=== PATIENT | female | born 1990 | race Asian ===

== ENCOUNTER 2016-07-04 20:30 | Emergency (ER) | payer BC ==
[~2016-07-04] VITALS: Ht 160 cm; Wt 59.0 kg
[2016-07-04 20:41] VITALS: BP 120/76; PULSE 85; RESP 16; TEMP 98.1; O2SAT 96
[2016-07-04 21:35] LABS: BILIRUBIN,URINE 1+ (NEGATIVE); BLOOD, URINE NEGATIVE (NEGATIVE); CLARITY/URINE HAZY (CLEAR); COLOR,URINE YELLOW (YELLOW); GLUCOSE,URINE NEGATIVE (NEGATIVE); KETONES,URINE 1+ (NEGATIVE); LEUKOCYTE ESTERASE ,URINE 1+ (NEGATIVE); NITRITE, URINE NEGATIVE (NEGATIVE); PH,URINE 6.5 (5.0-8.0); PROTEIN URINE TRACE (NEGATIVE)
--- NOTE | 2016-07-04 21:35 | NUR ---
Patient to ER bed 04 to gown for evaluation. Side rails up. Report given to samantha.
--- NOTE | 2016-07-04 21:40 | NUR ---
Pt brought by self, A&OX4, pt c/o epigastric pain, nausea and diarrhea, skin pink and warm, cap refill<3, VSS, ambulatory, denies bleeding, respirations even and unlabored.
[2016-07-04 21:57] LABS: RBC,URINE 0-3 /HPF (0-3)
[2016-07-04 21:58] LABS: BACTERIA,URINE MODERATE /HPF (None Seen); MUCUS,URINE 2+ /LPF (None Seen)
--- NOTE | 2016-07-04 22:04 | NUR ---
Dr Gilmore at bedside examining patient
[2016-07-04] MEDS ORDERED: FAMOTIDINE 20 MG TABLET PO ONE (22:15)
[2016-07-04 22:32] LABS: EOSINOPHILS # (AUTO) 0.1 K/uL (0.0-0.4); HEMOGLOBIN 13.7 g/dL (12.0-16.0); LYMPHOCYTES # (AUTO) 0.9 K/uL (1.0-5.5); MONOCYTES # (AUTO) 0.3 K/uL (0.0-1.0)
[2016-07-04 22:41] LABS: MEAN CORPUSCULAR HEMOGLOBIN 31 pg (27-31); MEAN CORPUSCULAR HGB CONC 34 % (32-36); MEAN CORPUSCULAR VOLUME 92 fL (79.0-98.0)
[2016-07-04 22:43] LABS: RED BLOOD CELL COUNT(AUTO) 4.39 MIL/uL (4.2-6.2); WHITE BLOOD COUNT (AUTO) 2.9 K/uL (4.8-10.8)
[2016-07-04 22:44] LABS: HEMATOCRIT 40.7 % (36-48); PLATELET COUNT (AUTO) 202 K/uL (130-430); RED CELL DISTRIBUTION WIDTH 12.9 % (9.0-15.0)
[2016-07-04 22:47] LABS: BASOPHILS % (AUTO) 0.4 % (0.0-2.0); EOSINOPHILS % (AUTO) 2.6 % (0.0-4.0); LYMPHOCYTES % (AUTO) 29.8 % (20.5-51.5); MONOCYTES % (AUTO) 11.3 % (1.7-9.3); NEUTROPHILS # (AUTO) 1.6 K/uL (1.8-7.7); NEUTROPHILS % (AUTO) 55.9 % (40.0-70.0)
--- NOTE | 2016-07-04 23:05 | NUR ---
Alina godoy in [facility] - 07/04/16 at 2306 by [email or web address] Report given to Teena YEAGER
--- NOTE | 2016-07-04 23:05 | NUR ---
Report given to Kellen YEAGER
[2016-07-04 23:41] LABS: ALBUMIN 3.5 g/dL (3.4-4.8); CALCIUM 8.3 mg/dL (8.4-11.0); CREATININE 0.85 mg/dL (0.55-1.30); POTASSIUM 3.4 mmol/L (3.5-5.1); TOTAL BILIRUBIN 0.3 mg/dL (0.0-1.0)
--- NOTE | 2016-07-05 00:05 | NUR ---
Patient resting quietly. No acute distress noted. Vital signs within normal range.
[2016-07-05 00:52] VITALS: BP 121/78; PULSE 88; RESP 17; TEMP 98.1; O2SAT 98
--- NOTE | 2016-07-05 00:52 | NUR ---
Patient given written and verbal discharge instructions and verbalizes understanding. ER MD discussed with patient the results and treatment provided. Given copies of tests performed in ER. Patient in stable condition. ID arm band removed. No Rx given. Patient educated on pain management and to follow up with PMD. Pain Scale 0/10. Opportunity for questions provided and answered.
== END 2016-07-05 00:52 | disposition home or self-care (01) ==
LOC: SED 20:30
DX: R10.13 Epigastric pain (principal); R11.10 Vomiting, unspecified; R19.7 Diarrhea, unspecified
CPT/HCPCS: 36415; 80053; 81000-TC; 81025; 83690-TC; 85025; 87086; 99284